=== PATIENT | female | born 1955 | race Hispanic/Latino ===

== ENCOUNTER 2017-02-28 11:11 | Outpatient (CLI) | payer BC ==
--- NOTE | 2017-03-04 09:03 | Mammography Report ---
Screening mammogram: Routine views demonstrate a heterogeneously dense and symmetrically distributed fibroglandular pattern. There is a focal linear area of asymmetry corresponding to a surgical site in the superior right breast. There is a focal cluster of calcifications in the central left breast only clearly seen in CC projection. With these exceptions there are no significant findings. CAD used. Impression: Apparent right surgical scar. Low suspicion cluster of left calcifications. Recommendation: Prior exams are being requested for comparison before final recommendation. BI-RADS CATEGORY: 0 = Needs additional imaging evaluation ACR BI-RADS MAMMOGRAPHIC CODES: 0 = Needs additional imaging evaluation; 1 = Negative; 2 = Benign; 3 = Probably benign; 4 = Suspicious; 5 = Malignant; 6 = Known biopsy-proven malignancy COMMENT: 1. Dense breast tissue, i.e., adenosis, fibrocystic changes, etc., may obscure an underlying neoplasm. 2. Approximately 10% of cancers are not detected with mammography. 3. A negative mammography report should not delay biopsy if a clinically suspicious mass is present.
== END 2017-02-28 11:12 | disposition home or self-care (01) ==
LOC: SPVWC 11:11
PROVIDERS: ATTEND Obstetrics & Gynecology
DX: Z12.31 Encounter for screening mammogram for malignant neoplasm of breast (principal)
CPT/HCPCS: 77067; G0202